=== PATIENT | male | born 1955 | race Caucasian/White ===

== ENCOUNTER 2019-09-25 18:50 | Inpatient (IN) | payer MEDICARE, OTHER ==
[2019-09-25 20:20] LABS: Basophils # (A) 0.1 k/uL (0-0.2); Basophils % (A) 1 %; Eosinophils # (A) 0.2 k/uL (0-0.7); Eosinophils % (A) 3 %; HCT 41.6 % (39.0-53.0); HGB 13.2 gm/dL (13.0-17.5); Hypochromasia Slight; Lymphocytes % (A) 13 %; MCH 25.9 pg (25.0-35.0); MCHC 31.8 g/dL (31.0-37.0); MCV 81.5 fL (80.0-100.0); Monocytes # (A) 0.5 k/uL (0-1.0); Monocytes % (A) 6 %; Neutrophils # (A) 6.1 k/uL (1.3-7.7); Neutrophils % (A) 76 %; Platelet Count 261 k/uL (150-450); RDW 14.6 % (11.5-15.5)
[2019-09-25 20:27] LABS: ALT 29 U/L (4-49); AST 100 U/L (17-59); African American GFR (CKD) >90 (>60 ml/min/1.73 sqM); Albumin 3.8 g/dL (3.5-5.0); Alkaline Phosphatase 69 U/L (38-126); Anion Gap 8 mmol/L; Blood Urea Nitrogen 14 mg/dL (9-20); Calcium 8.8 mg/dL (8.4-10.2); Carbon Dioxide 29 mmol/L (22-30); Chloride 101 mmol/L (98-107); Glucose 93 mg/dL (74-99); Magnesium 2.2 mg/dL (1.6-2.3); Non-African American GFR(CKD) >90 (>60 ml/min/1.73 sqM); Potassium 3.9 mmol/L (3.5-5.1); Sodium 138 mmol/L (137-145); Total Bilirubin 0.7 mg/dL (0.2-1.3); Total Protein 6.6 g/dL (6.3-8.2)
[2019-09-25 20:38] LABS: INR 0.9 (<1.2); Partial Thromboplastin Time 21.7 sec (22.0-30.0); Prothrombin Time 9.6 sec (9.0-12.0)
[2019-09-25 20:39] LABS: Creatine Kinase MB 13.3 ng/mL (0.0-2.4); Troponin I 0.016 ng/mL (0.000-0.034)
--- NOTE | 2019-09-25 20:46 | XR ---
EXAMINATION TYPE: XR chest 2V DATE OF EXAM: 09/25/2019 COMPARISON: NONE HISTORY: Weakness TECHNIQUE: 3 views FINDINGS: There is mild thoracic kyphosis. There is 25% anterior wedging of T7 and T8 vertebra. Heart and mediastinum are normal. Lungs are clear of infiltrate. There is no pleural effusion. There are n o hilar masses. IMPRESSION: No active cardiopulmonary disease. Thoracic compression fractures appear old.
[2019-09-25 21:33] LABS: T4, Free (Free Thyroxine) 0.84 ng/dL (0.78-2.19)
[2019-09-25 23:16] LABS: Appearance,Urine Cloudy (Clear); Bacteria,Urine Rare /hpf; Bilirubin,Urine Negative (Negative); Blood,Urine Negative (Negative); Color,Urine Yellow; Glucose,Urine (UA) Negative (Negative); Ketones,Urine 2+ (Negative); Leukocyte Esterase,Urine Large (Negative); Mucus,Urine Rare /hpf; Nitrite,Urine Negative (Negative); PH, Urine 7.5 (5.0-8.0); Protein,Urine Trace (Negative); RBC,Urine 3 /hpf (0-5); Specific Gravity,Urine 1.021 (1.001-1.035); WBC,Urine 87 /hpf (0-5)
[2019-09-25] MEDS ORDERED: NALOXONE 0.4 MG/ML 1 ML VIAL IV PRN (23:18)
--- NOTE | 2019-09-25 23:18 | ED ---
Weakness HPI - General Stated complaint: weakness - History of Present Illness Initial comments: See paper chariting for HPI Review of Systems ROS Statement: Those systems with pertinent positive or pertinent negative responses have been documented in the HPI. ROS Other: All systems not noted in ROS Statement are negative. Course Vital Signs 09/25/19 09/25/19 21:12 23:02 Pulse Rate 79 79 Respiratory 18 Rate Blood Pressure 156/85 146/86 O2 Sat by Pulse 99 98 Oximetry Medical Decision Making - Medical Decision Making 63-year-old male patient presented to the emergency department today for evaluation of leg weakness. Patient reports history of MS diagnosed 20 years ago, not currently on medications. Physical examination initially patient was unable to move his legs. Sensation was intact. He is otherwise neurologically intact. Labs reviewed and did reveal elevated CK at 1999. EKG was unremarkable. Chest x-ray was unremarkable. Patient will be admitted to the [facility] for further evaluation and possible neurology evaluation. We will start IV fluids - Lab Data Result diagrams: 09/25/19 19:36 09/25/19 19:36 Lab Results 09/25/19 09/25/19 09/25/19 Range/Units 19:36 19:36 19:36 WBC 8.0 (3.8-10.6) k/uL RBC 5.10 (4.30-5.90) m/uL Hgb 13.2 (13.0-17.5) gm/dL Hct 41.6 (39.0-53.0) % MCV 81.5 (80.0-100.0) fL MCH 25.9 (25.0-35.0) pg MCHC 31.8 (31.0-37.0) g/dL RDW 14.6 (11.5-15.5) % Plt Count 261 (150-450) k/uL Neutrophils % 76 % Lymphocytes % 13 % Monocytes % 6 % Eosinophils % 3 % Basophils % 1 % Neutrophils # 6.1 (1.3-7.7) k/uL Lymphocytes # 1.0 (1.0-4.8) k/uL Monocytes # 0.5 (0-1.0) k/uL Eosinophils # 0.2 (0-0.7) k/uL Basophils # 0.1 (0-0.2) k/uL Hypochromasia Slight PT (9.0-12.0) sec INR (<1.2) APTT (22.0-30.0) sec Sodium 138 (137-145) mmol/L Potassium 3.9 (3.5-5.1) mmol/L Chloride 101 (98-107) mmol/L Carbon Dioxide 29 (22-30) mmol/L Anion Gap 8 mmol/L BUN 14 (9-20) mg/dL Creatinine 0.73 (0.66-1.25) mg/dL Est GFR (CKD-EPI)AfAm >90 (>60 ml/min/1.73 sqM) Est GFR (CKD-EPI)NonAf >90 (>60 ml/min/1.73 sqM) Glucose 93 (74-99) mg/dL Plasma Lactic Acid Gene (0.7-2.0) mmol/L Calcium 8.8 (8.4-10.2) mg/dL Magnesium 2.2 (1.6-2.3) mg/dL Total Bilirubin 0.7 (0.2-1.3) mg/dL AST 100 H (17-59) U/L ALT 29 (4-49) U/L Alkaline Phosphatase 69 (38-126) U/L Total Creatine Kinase 2067 H* (55-170) U/L CK-MB (CK-2) 13.3 H (0.0-2.4) ng/mL CK-MB (CK-2) Rel Index Troponin I 0.016 (0.000-0.034) ng/mL Total Protein 6.6 (6.3-8.2) g/dL Albumin 3.8 (3.5-5.0) g/dL TSH 12.000 H (0.465-4.680) mIU/L Free T4 0.84 (0.78-2.19) ng/dL 09/25/19 09/25/19 Range/Units 19:36 19:36 WBC (3.8-10.6) k/uL RBC (4.30-5.90) m/uL Hgb (13.0-17.5) gm/dL Hct (39.0-53.0) % MCV (80.0-100.0) fL MCH (25.0-35.0) pg MCHC (31.0-37.0) g/dL RDW (11.5-15.5) % Plt Count (150-450) k/uL Neutrophils % % Lymphocytes % % Monocytes % % Eosinophils % % Basophils % % Neutrophils # (1.3-7.7) k/uL Lymphocytes # (1.0-4.8) k/uL Monocytes # (0-1.0) k/uL Eosinophils # (0-0.7) k/uL Basophils # (0-0.2) k/uL Hypochromasia PT 9.6 (9.0-12.0) sec INR 0.9 (<1.2) APTT 21.7 L (22.0-30.0) sec Sodium (137-145) mmol/L Potassium (3.5-5.1) mmol/L Chloride (98-107) mmol/L Carbon Dioxide (22-30) mmol/L Anion Gap mmol/L BUN (9-20) mg/dL Creatinine (0.66-1.25) mg/dL Est GFR (CKD-EPI)AfAm (>60 ml/min/1.73 sqM) Est GFR (CKD-EPI)NonAf (>60 ml/min/1.73 sqM) Glucose (74-99) mg/dL Plasma Lactic Acid Gene 1.4 (0.7-2.0) mmol/L Calcium (8.4-10.2) mg/dL Magnesium (1.6-2.3) mg/dL Total Bilirubin (0.2-1.3) mg/dL AST (17-59) U/L ALT (4-49) U/L Alkaline Phosphatase (38-126) U/L Total Creatine Kinase (55-170) U/L CK-MB (CK-2) (0.0-2.4) ng/mL CK-MB (CK-2) Rel Index Troponin I (0.000-0.034) ng/mL Total Protein (6.3-8.2) g/dL Albumin (3.5-5.0) g/dL TSH (0.465-4.680) mIU/L Free T4 (0.78-2.19) ng/dL - Radiology Data Radiology results: report reviewed, image reviewed Two-view x-ray of the chest is obtained. Report was reviewed in its entirety. Impression by Dr. Elliott shows no active cardiopulmonary disease. Thoracic compression fractures of-year-old. Disposition Clinical Impression: Leg weakness Disposition: ADMITTED IP TO THIS HOSP Condition: Serious Referrals: None,Stated [Primary Care Provider] - 1-2 days Decision to Admit Reason: Admit from EC Decision Date: 09/25/19 Decision Time: 23:18
[2019-09-26] MEDS: SODIUM CHLORIDE 0.9% 1,000 ML IV SCH ×4 (00:30→21:56)
[2019-09-26] MEDS ORDERED: ACETAMINOPHEN TAB 325 MG TAB PO PRN (02:46)
--- NOTE | 2019-09-26 03:14 | P.HPIM ---
History of Present Illness H&P Date: 09/26/19 Chief Complaint: spasm and weakness of lower extremities 63 year old male with hisroy of MS not on medications patient comes in due to couple day history of progressive weakness in his lower extremities. he reports spasm that has been worsening over the past 2 weeks. he decided to seek medical attention today. he reports similar attacks on regular basis , that improves on its own , happens 1-2 times a month. however such weakness he does not experience but probably onc e a year he otherwise denies any drug of abuse, denies any pain , denies any sensosry changes, denies any trauma . [place]. he does not take any medications on regular basis he otherwise denies any trouble urinating or problems with bowel movement . d enies any fever, chills, chest pain , trouble breathing coughing nausea vomting or abd pain . blood work in the ED , showed elevated CK, elevated TSH, however free T4 within normal limits. he denies any sick contacts. patient ambulates using wheelchair , and walker. last hospitalization was 10 years ago . Review of Systems Pertinent positives as noted in HPI. All other systems were reviewed and are negative Past Medical History Additional Past Medical History / Comment(s): MS - Past Family History family Family Medical History: No Reported History Medications and Allergies Allergies Allergy/AdvReac Type Severity Reaction Status Date / Time No Known Allergies Allergy Verified 09/25/19 23:55 Physical Exam Vitals: Vital Signs Pulse Resp BP Pulse Ox 09/25/19 23:02 79 18 146/86 98 09/25/19 21:12 79 156/85 99 Intake and Output 09/25/19 09/25/19 09/26/19 14:59 22:59 06:59 Other: Weight 61.689 kg Constitutional: No acute distress, conversant, pleasant Eyes: Anicteric sclerae, moist conjunctiva, Pupils equal round reactive to light ENMT: NC/AT Oropharynx clear, no erythema, or exudates Neck: Supple, FROM, no masses, or JVD No carotid bruits No thyromegaly Lungs: Clear to auscultation Clear to percussion Normal respiratory effort, no accessory muscle use Cardiovascular: Heart regular in rate and rhythm, No murmurs, gallops, or rubs No peripheral edema Abdominal: Soft Nontender, no guarding, rebound or rigidity Abdomen moving with respiration Normoactive bowel sounds No hepatomegaly, No splenomegaly No palpable mass No abdominal wall hernia noted Skin: Normal temperature, tone, texture, turgor No induration No subcutaneous nodules No rash, lesions No ulcers Extremities: No digital cyanosis No clubbing Pedal pulses intact and symmetrical Radial pulses intact and symmetrical No calf tenderness Psychiatric: Alert and oriented to person, place and time Appropriate affect fair judgement Neuro Muscles Strength 5/5 in bilateral upper extremities, spasm of the lower extremity , stiffness over distal muscle groups in lower extremities Sensation to light touch grossly present throughout Cranial nerves II-XII grossly intact No focal sensory deficits Lymphatics: no palpable cervical or supraclavicular , or inguinal lymph nodes Results CBC & Chem 7: 09/25/19 19:36 09/25/19 19:36 Labs: Abnormal Lab Results - Last 24 Hours (Table) 09/25/19 09/25/19 09/25/19 Range/Units 19:36 19:36 19:36 APTT 21.7 L (22.0-30.0) sec AST 100 H (17-59) U/L Total Creatine Kinase 2067 H* (55-170) U/L CK-MB (CK-2) 13.3 H (0.0-2.4) ng/mL TSH 12.000 H (0.465-4.680) mIU/L Urine Protein (Negative) Urine Ketones (Negative) Ur Leukocyte Esterase (Negative) Urine WBC (0-5) /hpf Urine Bacteria (None) /hpf Urine Mucus (None) /hpf 09/25/19 Range/Units 23:00 APTT (22.0-30.0) sec AST (17-59) U/L Total Creatine Kinase (55-170) U/L CK-MB (CK-2) (0.0-2.4) ng/mL TSH (0.465-4.680) mIU/L Urine Protein Trace H (Negative) Urine Ketones 2+ H (Negative) Ur Leukocyte Esterase Large H (Negative) Urine WBC 87 H (0-5) /hpf Urine Bacteria Rare H (None) /hpf Urine Mucus Rare H (None) /hpf Assessment and Plan Assessment: 63 year old male with MS, not currently on medications. uses wheelchair and walker to ambulate. comes in due to worsening spasm and weakness of lower extremities . admitted for Neuro eval and treatment anticipated length of stay >2 midnights acute MS exacerbation methylprednisolone 1 gm daily for 3-5 days baclofen TID PRN for spasm neuro eval neuro consult pain control acute rhabdomyolysis aggressive IVF hydration with normal saline monitor CK monitor renal function elevated TSH , acute phase reaction free T4 within normal limits consider outpatient follow up within 4-6 weeks CODE STATUS: full code DVT prophylaxis: heparin sc tid Discussed with: Patient, ER, RN Anticipated length of stay >than [address]: home A total of 75 minutes was spent on the care of this complex patient more than 50% of the time was spent in counseling and care coordination. acute
[2019-09-26] MEDS: HEPARIN SODIUM,PORCINE 5,000 UNIT/ML 1 ML VIAL SQ SCH ×3 (08:50→23:45)
[2019-09-26] MEDS: PANTOPRAZOLE 40 MG TABLET PO SCH ×2 (08:50→17:12)
[2019-09-26] MEDS ORDERED: BACLOFEN 10 MG TAB PO PRN (09:00)
[2019-09-26] MEDS: methylPREDNISolone SOD SUCC 1,000 MG in SODIUM CHLORIDE 0.9% 250 ML IVPB SCH (09:39)
--- NOTE | 2019-09-26 09:41 | P.PN ---
Progress Note - Text Progress Note Date: 09/26/19 Patient was seen and examined. He has profound weakness in both of his extremities right more than left. I will order MRI of the thoracic and lumbar spine to look for a ms lesion versus any other spinal pathology.
[2019-09-26 10:00] LABS: African American GFR (CKD) >90 (>60 ml/min/1.73 sqM); Anion Gap 5 mmol/L; Blood Urea Nitrogen 14 mg/dL (9-20); Calcium 8.6 mg/dL (8.4-10.2); Carbon Dioxide 28 mmol/L (22-30); Chloride 105 mmol/L (98-107); Creatine Kinase 948 U/L (55-170); Glucose 140 mg/dL (74-99); Non-African American GFR(CKD) >90 (>60 ml/min/1.73 sqM); Potassium 3.8 mmol/L (3.5-5.1); Sodium 138 mmol/L (137-145)
[2019-09-26] MEDS ORDERED: LORazepam 2 MG/ML INJ IV STA (13:32)
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
--- NOTE | 2019-09-26 15:25 | MR ---
EXAMINATION TYPE: MR brain/cspine wo/w DATE OF EXAM: 09/26/2019 COMPARISON: None HISTORY: Progressive weakness in [place] Extremities, spasms. Questioning MS TECHNIQUE: Multiplanar, multisequence images of the brain and brainstem, cervical spine is performed without and with IV contrast, utilizing 6.5 mL intravenous Gadavist . FINDINGS: There is motion on the exam. Diffusion weighted images demonstrate no evidence of a recent infarct or other diffusion abnormality. There is no extra-axial fluid collection. There is subcorti italo, periventricular hyperintensity and inversion recovery T2-weighted sequences within the deep whit e matter is noted. The ventricular system and cisternal spaces are normal in size and appearance. Th e brain volume is age appropriate, there is cortical atrophy, perhaps disproportionate greater atroph y is noted within the cerebellum. Midline structures demonstrate normal morphology. The craniocervical junction appears within normal limits. Post contrast images demonstrate no abnormal enhancement. The dural venous sinuses appear pa tent. The visualized sinuses are clear and the globes are intact. IMPRESSION: Nonspecific white matter demyelination. Probable age-related atrophy, disproportionate ce rebellar atrophy could be due to entities such as chronic Dilantin use or alcohol abuse. Cervical spine: Cervical vertebral bodies show preserved height and alignment. Disc spaces are relati vely maintained, small disc bulge present posteriorly at C6-7. Cervical cord signal is maintained. No significant spinal stenosis. No abnormal enhancement following contrast administration. Axial images show extensive motion. Impression: Mild degenerative disc disease. No evident cord signal change.
[2019-09-26 16:32] LABS: Glucose,Whole Blood 154 mg/dL (75-99)
[2019-09-26 21:41] LABS: Glucose,Whole Blood 132 mg/dL (75-99)
[2019-09-27] MEDS: SODIUM CHLORIDE 0.9% 1,000 ML IV SCH ×3 (05:00→17:04)
[2019-09-27 06:44] LABS: Glucose,Whole Blood 128 mg/dL (75-99)
[2019-09-27 08:27] VITALS: RESP 18
[2019-09-27] MEDS: PANTOPRAZOLE 40 MG TABLET PO SCH ×2 (08:50→17:04)
[2019-09-27] MEDS: HEPARIN SODIUM,PORCINE 5,000 UNIT/ML 1 ML VIAL SQ SCH ×2 (08:50→17:04)
[2019-09-27] MEDS: methylPREDNISolone SOD SUCC 1,000 MG in SODIUM CHLORIDE 0.9% 250 ML IVPB SCH (08:51)
[2019-09-27 11:28] LABS: Glucose,Whole Blood 116 mg/dL (75-99)
--- NOTE | 2019-09-27 12:39 | P.PN ---
Subjective Progress Note Date: 09/27/19 Principal diagnosis: MS exacerbation Patient is doing much better today. The weakness in his legs has improved. Currently waiting on MRI results. No other new symptoms. Objective - Vital Signs Vital signs: Vital Signs Temp 98.2 F 09/27/19 11:00 Pulse 89 09/27/19 11:00 Resp 18 09/27/19 11:00 BP 149/76 09/27/19 11:00 Pulse Ox 95 09/27/19 11:00 Intake & Output 09/26/19 09/27/19 09/27/19 18:59 06:59 18:59 Intake Total 1500 1190 Output Total 100 Balance 1500 1190 -100 Weight 61.689 kg Intake: Intake, IV Titration 1500 1000 Amount Sodium Chloride 0.9% 1, 1200 1000 000 ml @ 150 mls/hr IV . Q6H40M [facility] Rx#:[id number] cefTRIAXone 1 gm In 50 Sodium Chloride 0.9% 50 ml @ 100 mls/hr IVPB Q24HR [facility] Rx#:[id number] methylPREDNISolone SOD 250 SUCC 1,000 mg In Sodium Chloride 0.9% 250 ml @ 250 mls/hr IVPB DAILY [facility] Rx#:[id number] Oral 190 Output: Urine 100 Other: Voiding Method Urinal Diaper # Voids 1 - Exam Constitutional: No acute distress, conversant, pleasant Eyes:Anicteric sclerae, moist conjunctiva, no lid-lag, PERRLA, ENMT: Oropharynx clear, no erythema, exudates Neck: Supple, FROM, no masses, or JVD, No carotid bruits, No thyromegaly Lungs: Clear to auscultation, Clear to percussion, Normal respiratory effort, no accessory muscle use Cardiovascular: Heart regular in rate and rhythm, No murmurs, gallops, or rubs, No peripheral edema Abdominal: Soft, Nontender, no guarding, rebound or rigidity, Normoactive bowel sounds, No hepatomegaly, No splenomegaly, No palpable mass Skin: Normal temperature, tone, texture, turgor, no induration, No subcutaneous nodules, No rash, lesions, No ulcers Extremities: No digital cyanosis, No clubbing, Pedal pulses intact and symmetrical, Radial pulses intact and symmetrical, No calf tenderness Psychiatric: Alert and oriented to person, place and time, appropriate affect, intact judgement Neuro: Muscles Strength 3/5 in the legs. Bilateral upper extremities 5/5, Sensation to light touch grossly present throughout, Cranial nerves II-XII grossly intact, no focal sensory deficits - Labs CBC & Chem 7: 09/25/19 19:36 09/26/19 09:04 Labs: Abnormal Lab Results - Last 24 Hours (Table) 09/26/19 09/26/19 09/26/19 Range/Units 09:09 09:09 16:30 POC Glucose (mg/dL) 154 H (75-99) mg/dL CK-MB (CK-2) 6.4 H (0.0-2.4) ng/mL HDL Cholesterol 32 L (40-60) mg/dL 09/26/19 09/27/19 09/27/19 Range/Units 21:29 06:39 11:26 POC Glucose (mg/dL) 132 H 128 H 116 H (75-99) mg/dL CK-MB (CK-2) (0.0-2.4) ng/mL HDL Cholesterol (40-60) mg/dL Microbiology - Last 24 Hours (Table) 09/26/19 11:00 Urine Culture - Final Urine,Clean Catch Assessment and Plan Plan: acute MS exacerbation Continue methylprednisolone 1 gm daily for 3-5 days baclofen TID PRN for spasm neuro input appreciated MRI of the brain and cervical spine noted Awaiting MRI thoracic and lumbar spine acute rhabdomyolysis Improved, Continue IVF hydration with normal saline monitor renal function UTI Urine cx pending Ceftriaxone 1gm IV daily Anticipated discharge: 2-[address]: rehab
[2019-09-27] MEDS ORDERED: LORazepam 2 MG/ML INJ IV STA (14:22)
[2019-09-27 17:05] LABS: Glucose,Whole Blood 141 mg/dL (75-99)
--- NOTE | 2019-09-27 20:01 | MR ---
EXAMINATION TYPE: MR rogerioine/lspine wo/w con DATE OF EXAM: 09/27/2019 COMPARISON: HISTORY: Bilateral leg weakness, progressive with question for multiple sclerosis. TECHNIQUE: Multiplanar, multisequence images of the lumbar spine is performed without and with IV contrast, util izing 6.5 mL intravenous Gadavist FINDINGS: There is some patient motion artifact limiting evaluation. There is an old compression deformity of L1 with estimated vertebral body height loss of approximatel y 20%. Superior endplate Schmorl's node is also seen. No bone marrow edema identified. Epidural lipom atosis is seen of the thoracic levels with an exaggerated thoracic kyphosis. Multilevel degenerative disc disease is evident in the thoracic spine however no focal disc herniation or significant spinal canal stenosis is seen. No discrete neural foraminal narrowing at the thoracic levels. Trace pleural effusions are incidentally seen. Old compression deformity of L1 as described above. Remainder of the lumbar spine vertebral body heig hts are maintained. No malalignment seen. Rudimentary disc at S1-S2. Bone marrow signal is within nor mal limits. Conus medullaris is unremarkable terminating at L1-L2. Multilevel disc desiccation seen. L1-L2: Minimal facet arthropathy without spinal canal stenosis or neural foraminal narrowing. L2-L3: Disc desiccation and a small broad-based disc bulge without spinal canal stenosis. Minimal lef t neural foraminal narrowing. No significant right neural foraminal narrowing. L3-L4: There is a broad-based disc bulge and facet arthropathy resulting in minimal left neural grant inal narrowing. No significant spinal canal stenosis or right neural foraminal narrowing. L4-L5: Facet arthropathy, ligamentum flavum buckling and a broad-based disc bulge are seen contributi ng to mild bilateral neural foraminal narrowing. Very mild spinal canal stenosis. L5-S1: There is a small central disc herniation superimposed on a broad-based disc bulge. Facet arthr opathy and ligamentum flavum buckling are seen creating mild bilateral neural foraminal narrowing wit hout spinal canal stenosis. There is subtle and mild distal nerve root enhancement of the cauda equina is seen diffusely. IMPRESSION: 1. Very mild subtle distal nerve root enhancement of the cauda equina diffusely. Differential diagnos es include Guillian Teague syndrome, chronic inflammatory polyneuropathy, arachnoiditis, spinal mening itis, and leptomeningeal carcinomatosis. Repeat examination could be considered with contrast to conf irm this finding as there is extensive patient motion. 2. Old compression deformity of L1 without bone marrow edema. 3. Exaggerated thoracic kyphosis with epidural lipomatosis.. 4. Trace pleural effusions incidentally seen. 5. Lumbar spine evaluation is particularly limited given patient motion. 6. Small central disc herniation at L5-S1 without spinal canal stenosis. 7. Mild spinal canal stenosis at L4-L5 from a broad-based disc bulge, facet arthropathy and ligamentu m flavum buckling. 8. Mild to moderate degenerative disc disease of the lumbar spine are detailed age level. A [place] critical message alert has been initiated for Cr Delacruz MD via the [employer] Critical Results System on 09/27/2019 7:58 PM. This message alert has been sent to Cr Delacruz MD via the preferences provided by the clinician for the receipt of Radiology Critical Findings. [facility] [place] [id number].
--- NOTE | 2019-09-27 20:40 | P.PN ---
Progress Note - Text Progress Note Date: 09/27/19 I reviewed MRI lumbar and thoracic spine with dr. Livingston who is recommending transfer to a different facility that offers neurology and neurosurgery service. as we have no neurology follow up over the weekend,. I notified housekeeping manager to initiate the transfer. no recommendations otherwise for any immediate interventions at this time
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
--- NOTE | 2019-09-27 20:57 | P.DS ---
Providers Date of admission: 09/27/19 13:09 Expected date of discharge: 09/27/19 Attending physician: Cr Delacruz MD Consults: 09/26/19 02:57 Consult Physician Routine Consulting Provider: Anshu Beltre Consult Reason/Comments: MS exacerbation Do you want consulting provider notified?: Yes, Notify in am Primary care physician: Stated None Hospital Course: final diagnosis at time of transfer 1. waxing and waning spasticity of the lower extremities , chronic in nature with recent flare up, unknown exact underlying cause hospital course. 63-year-old man who resents with a presumed diagnosis of multiple sclerosis. He complains of progressive weakness in the lower extremities and spasms which got worse over the past 1-2 weeks, which he claims that it happens at least once every month which improves on its own . patient seems to have very poor insight regarding his condition. He was given a diagnosis of Multiple sclerosis at age of 16 years when he had ve ry bad spasticity of his lower extremities. Patient also recalls an accident earlier during his childhood which could have precipitated this problem. he is very poor historian. but does recall some kind of spinal cord injury when he was around 6 years old. he has been lost to follow up and currently not on any medications. He also admits to difficulty with controling his urine and bowel movements. Otherwise, He denies any bulbar symptoms , difficulty swallowing, or any upper extremities weakness or spasticity. denies fever, Headache , vision changes, nausea or vomiting. initial evaluation in the ED, showed slightly elevated blood pressure, and blood work reflected elevated CK and elevated TSH at 12 wtih normal free T4. patient was admitted to the hospital for neurology evaluation , he was initiated on Solu-Medrol 1000 mg IV as pulse dose therapy for presumed MS exacerbation. and baclofen PRN for spasticity patient was also started on Rocephine for presumed UTI, awaiting cultures results , no fever, no leukocytosis patient had very slight improvement in his weakness. MRI of the thoracic and lumbar spine attached, done today was concerning for very mild subtle distal nerve root enchancement of the cauda equina diffusely . differential diagnosis include Guilliam Bradgate syndrome, chronic inflammatory polyneuropathy, arachnoiditis, spinal meningitis, and leptomeningeal carcinomatosis suggesting repeating examination with contrast to confirm these findings due to extensive patient motion I discussed results with neurology , who recommended transfer to a facility that provides Neurology coverage and neurosurgery evaluation as we do not have neurology coverage over the weekend no recommendations for any other immediate interventions at this time. patient is clinically stable otherwise with stable vital sings Patient Condition at Discharge: Stable Plan - Discharge Summary Discharge Rx Participant: No New Discharge Prescriptions: No Action Naproxen Sodium [Aleve] 440 mg PO Q8H PRN PRN Reason: Pain Discharge Medication List Naproxen Sodium [Aleve] 440 mg PO Q8H PRN 09/27/19 [History] Follow up Appointment(s)/Referral(s): None,Stated [Primary Care Provider] - 1-2 days [facility] [NON-STAFF] - 1 Week
[2019-09-27 22:19] VITALS: BP 174/88; PULSE 97; TEMP 98.3
[2019-09-28 22:00] LABS: Folate, Serum 7.6 ng/mL
== END 2019-09-28 05:40 | disposition short-term general hospital (02) | DRG 59 ==
LOC: EC 18:50 → 6NMEDSUR 23:31 → 1SOBS 09-26 09:07 → OBSVTOIN 09-27 13:09
PROVIDERS: ADMIT Internal Medicine; ATTEND Internal Medicine
DX: G35 Multiple sclerosis (principal); M62.82 Rhabdomyolysis; R32 Unspecified urinary incontinence; R15.9 Full incontinence of feces; R62.7 Adult failure to thrive; Z68.22 Body mass index [BMI] 22.0-22.9, adult; R26.9 Unspecified abnormalities of gait and mobility; Z11.59 Encounter for screening for other viral diseases; G31.89 Other specified degenerative diseases of nervous system; F17.210 Nicotine dependence, cigarettes, uncomplicated; Z91.81 History of falling; S14.9XXS Injury of unspecified nerves of neck, sequela; W19.XXXS Unspecified fall, sequela
CPT/HCPCS: 36415; 70553; 71046; 72156; 72157; 72158; 80048; 80053; 80061; 81001; 82550; 82553; 82607; 82746; 83516; 83605; 83735; 83880; 84439; 84443; 84480; 84484; 85025; 85610; 85730; 87086; 96365; 96372; 99285

== ENCOUNTER 2023-05-24 15:05 | Inpatient (IN) | payer MEDICARE, OTHER ==
[2023-05-24] MEDS ORDERED: SODIUM CHLORIDE 0.9% 1,000 ML IV STA ×3 (15:32→16:28)
[2023-05-24] MEDS ORDERED: KETOROLAC 15 MG/ML 1 ML VIAL IVP STA (15:32)
[2023-05-24] MEDS ORDERED: PANTOPRAZOLE 40 MG/10 ML VIAL IVP STA (15:32)
[2023-05-24] MEDS ORDERED: ONDANSETRON 4 MG/2 ML VIAL IVP STA (15:32)
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
[2023-05-24 16:16] LABS: HCT 51.6 % (39.0-53.0); HGB 16.7 gm/dL (13.0-17.5); MCH 29.3 pg (25.0-35.0); MCHC 32.5 g/dL (31.0-37.0); MCV 90.4 fL (80.0-100.0); Mean Platelet Volume 8.9; Platelet Count 219 k/uL (150-450); RBC 5.71 m/uL (4.30-5.90); RDW 13.6 % (11.5-15.5); WBC 31.4 k/uL (3.8-10.6)
[2023-05-24 16:28] LABS: ALT 38 U/L (4-49); AST 26 U/L (17-59); Albumin 3.7 g/dL (3.5-5.0); Alkaline Phosphatase 229 U/L (38-126); Amylase 61 U/L (30-110); Anion Gap 24 mmol/L; Calcium 8.6 mg/dL (8.4-10.2); Carbon Dioxide 14 mmol/L (22-30); Chloride 98 mmol/L (98-107); Creatine Kinase 54 U/L (55-170); Glucose 158 mg/dL (74-99); Lipase 27 U/L (23-300); Potassium 5.2 mmol/L (3.5-5.1); Sodium 136 mmol/L (137-145); Total Bilirubin 1.6 mg/dL (0.2-1.3); Total Protein 7.2 g/dL (6.3-8.2)
[2023-05-24] MEDS ORDERED: VANCOMYCIN IV PER PHARMACY 1 EACH MISC MISCELLANE PRN (16:28)
--- NOTE | 2023-05-24 16:28 | XR ---
EXAMINATION TYPE: XR chest 2V DATE OF EXAM: 05/24/2023 4:21 PM CLINICAL INDICATION:Male, 67 years old with history of abdominal pain; COMPARISON: Chest radiographs from 09/25/2019 TECHNIQUE: XR chest 2V Frontal and lateral views of the chest. FINDINGS: Lungs/Pleura: There is no evidence of pleural effusion, focal consolidation, or pneumothorax. Pulmonary vascularity: Unremarkable. Heart/mediastinum: Cardiomediastinal silhouette is unremarkable. Musculoskeletal: No acute osseous pathology. IMPRESSION: No acute cardiopulmonary disease/process.
[2023-05-24] MEDS ORDERED: PIPERACILLIN-TAZOBACTAM 3.375 GM in SODIUM CHLORIDE 0.9% 100 ML IVPB SCH (16:30)
[2023-05-24] MEDS ORDERED: VANCOMYCIN 1,000 MG in SODIUM CHLORIDE 0.9% 250 ML IVPB STA (16:32)
[2023-05-24 16:34] LABS: African American GFR (CKD) 7 (>60 ml/min/1.73 sqM); Non-African American GFR(CKD) 6 (>60 ml/min/1.73 sqM)
[2023-05-24 16:36] LABS: Appearance,Urine Turbid (Clear); Bilirubin,Urine Negative (Negative); Blood,Urine Moderate (Negative); Budding Yeast,Urine Few /hpf; Color,Urine Red; Glucose,Urine (UA) Negative (Negative); Ketones,Urine Negative (Negative); Leukocyte Esterase,Urine Large (Negative); Mucus,Urine Few /hpf; Nitrite,Urine Negative (Negative); PH, Urine 6.5 (5.0-8.0); Protein,Urine 3+ (Negative); RBC,Urine 34 /hpf (0-5); Urobilinogen,Urine <2.0 mg/dL (<2.0); WBC,Urine >182 /hpf (0-5)
[2023-05-24 16:37] LABS: Blood Urea Nitrogen 115 mg/dL (9-20)
[2023-05-24 16:52] LABS: Specific Gravity,Urine 1.023 (1.001-1.035)
[2023-05-24] MEDS ORDERED: PIPERACILLIN-TAZOBACTAM 3.375 GM in SODIUM CHLORIDE 0.9% 100 ML IVPB STA (16:56)
[2023-05-24 17:16] LABS: INR 1.2 (<1.2); Partial Thromboplastin Time 24.8 sec (22.0-30.0); Prothrombin Time 12.9 sec (10.0-12.5)
[2023-05-24 17:24] LABS: Band Neutrophils % 1 %; Lymphocytes # (M) 0.31 k/uL (1.0-4.8); Metamyelocytes # (M) 0.63 k/uL (0); Metamyelocytes % 2 %; Monocytes # (M) 0.63 k/uL (0-1.0); Neutrophils % (M) 96 %; Nucleated Red Blood Cells 0 /100 WBC (0-0); Total Cells Counted 200
--- NOTE | 2023-05-24 17:46 | CT ---
EXAMINATION TYPE: CT abdomen pelvis wo con CT DLP: 345.4 mGycm, Automated exposure control for dose reduction was used. DATE OF EXAM: 05/24/2023 5:26 PM COMPARISON: None. CLINICAL INDICATION:Male, 67 years old with history of abd pain; hematuria TECHNIQUE: Axial CT abdomen pelvis wo con;Sagittal and coronal reformats were created on a separate workstation. Contrast used: mL of , (none if empty) Oral contrast used: without Oral Contrast (none if empty) FINDINGS: LOWER CHEST: Unremarkable ABDOMEN LIVER: Unremarkable GALLBLADDER AND BILE DUCTS: Unremarkable. PANCREAS: Unremarkable. SPLEEN: Unremarkable. ADRENAL GLANDS: Unremarkable. KIDNEYS AND URETERS: Moderate left hydronephrosis bowel obstruction can't is visualized. There is hyp odensity throughout the bladder lumen. Partially relating to decompressed urinary bladder wall versus blood products PELVIS BLADDER: Nondistended with Zarate catheter in place. Bladder wall thickening and redundancy suggested. Evaluation significantly limited due to decompression with Zarate catheter. REPRODUCTIVE: Unremarkable. ABDOMEN & PELVIS STOMACH AND BOWEL: Is a moderate hiatal hernia. No evidence of bowel obstruction. PERITONEUM/RETROPERITONEUM: No evidence of pneumoperitoneum. There is free fluid throughout the abdom en. VASCULATURE: Mild atherosclerotic calcifications are present throughout the abdominal aorta and its b ranches. No evidence of aortic aneurysm. MUSCULOSKELETAL: No acute osseous abnormalities. Mild disc degeneration changes are present throughou t the thoracolumbar spine. LYMPH NODES: No gross evidence for lymphadenopathy. SOFT TISSUE/ABDOMINAL WALL: Bilateral fat-containing. Bilateral fat-containing inguinal hernias. IMPRESSION: 1. Bladder is decompressed with Zarate catheter in place. There is diffuse wall thickening suggested. Further evaluation with cystoscopy if not recently performed should be considered throughout underly ing masses. Correlate for traumatic Zarate insertion. 2. Moderate left hydronephrosis without obstructing calculus visualized. Correlate for distal ureter orifice obstruction 3. Free fluid throughout the abdomen possibly secondary to ruptured left calyx. Consider CT imaging with IV contrast with 15 minute delayed imaging 4. No additional acute abdominal process visualized. 5. Moderate hiatal hernia.
[2023-05-24] MEDS ORDERED: NALOXONE 0.4 MG/ML 1 ML VIAL IV PRN (18:16)
[2023-05-24] MEDS: SODIUM CHLORIDE 0.45% 1,000 ML with SODIUM BICARB (1 MEQ/ML) 150 ML IV SCH ×2 (18:32)
[2023-05-24] MEDS: HEPARIN SODIUM,PORCINE 5,000 UNIT/ML 1 ML VIAL SQ SCH (23:12)
[2023-05-25 03:40] LABS: Basophils # (A) 0.1 k/uL (0-0.2); Basophils % (A) 0 %; Eosinophils % (A) 0 %; HCT 40.8 % (39.0-53.0); Lymphocytes # (A) 0.4 k/uL (1.0-4.8); Lymphocytes % (A) 1 %; MCH 29.4 pg (25.0-35.0); MCHC 33.3 g/dL (31.0-37.0); MCV 88.4 fL (80.0-100.0); Mean Platelet Volume 9.1; Monocytes # (A) 0.4 k/uL (0-1.0); Monocytes % (A) 2 %; Neutrophils # (A) 24.7 k/uL (1.3-7.7); Neutrophils % (A) 96 %; Platelet Count 182 k/uL (150-450); RBC 4.61 m/uL (4.30-5.90); RDW 13.5 % (11.5-15.5); WBC 25.7 k/uL (3.8-10.6)
[2023-05-25 04:04] LABS: HGB 13.6 gm/dL (13.0-17.5)
[2023-05-25 04:25] LABS: African American GFR (CKD) 21 (>60 ml/min/1.73 sqM); Anion Gap 15 mmol/L; Blood Urea Nitrogen 81 mg/dL (9-20); Calcium 7.8 mg/dL (8.4-10.2); Carbon Dioxide 16 mmol/L (22-30); Chloride 108 mmol/L (98-107); Glucose 103 mg/dL (74-99); Non-African American GFR(CKD) 18 (>60 ml/min/1.73 sqM); Potassium 3.9 mmol/L (3.5-5.1); Sodium 139 mmol/L (137-145)
[2023-05-25] MEDS: HEPARIN SODIUM,PORCINE 5,000 UNIT/ML 1 ML VIAL SQ SCH ×2 (08:59→18:28)
[2023-05-25] MEDS: PIPERACILLIN-TAZOBACTAM 3.375 GM in SODIUM CHLORIDE 0.9% 100 ML IVPB SCH ×2 (09:00→20:27)
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
--- NOTE | 2023-05-25 11:18 | CT ---
EXAMINATION TYPE: CT Cystogram DATE OF EXAM: 05/25/2023 COMPARISON: NONE HISTORY: possible ruptured bladder CT DLP: 570.7 mGycm Automated exposure control for dose reduction was used. Contrast: None Technique: Axial images 5 mm thick sections. Contrast was administered through the Zarate catheter and repeat imaging was performed. FINDINGS: Free fluid is within the pelvis on the precontrast images. Urinary bladder contains a Zarate catheter and air. Bowel loops appear unremarkable. Vascular calcifications within aorta and iliac vessels. No free air is identified. Following retrograde filling of the urinary bladder, extravasation of contrast through the urinary bl adder wall is evident with free contrast within the peritoneum along the right pelvis and in the righ t paracolic gutter. There are multiple areas of contrast within the left urinary bladder wall. There appears be extravasation from urinary bladder along the anterior superior portion. Example image seri es 301 image 18. Possible additional extravasation is along the right posterior lateral urinary bladd er wall, series 301 image 27. Post void emptying imaging is also performed. IMPRESSION: 1. EXTRAVASATION OF CONTRAST FROM THE URINARY BLADDER MOST LIKELY AT THE ANTERIOR SUPERIOR PORTION. A SECOND POSSIBLE SITE WOULD INCLUDE THE RIGHT POSTERIOR LATERAL URINARY BLADDER. A Red level critical message alert has been initiated for Rc Etienne MD via the [facility] Critical Results System on 05/25/2023 11:13 AM. This message alert has been sent to Rc Etienne MD via the preferences provided by the clinician for the receipt of Radiology Critical Findings. [email or web address] e ID [id number].
[2023-05-25 11:19] VITALS: BMI 20.6
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
[2023-05-25] MEDS ORDERED: IV FLUID CONTINUATION 1,000 ML IV ONE ×3 (13:34→17:55)
[2023-05-25] MEDS ORDERED: IPRATROPIUM-ALBUTEROL 3 ML NEB ONE (13:54)
[2023-05-25] MEDS ORDERED: DEXAMETHASONE SOD PHOSPHATE 4 MG/ML 1 ML VIAL IVP ONE (14:00)
[2023-05-25] MEDS ORDERED: VANCOMYCIN 1,000 MG in SODIUM CHLORIDE 0.9% 250 ML IVPB ONE (14:00)
[2023-05-25] MEDS ORDERED: ONDANSETRON 4 MG/2 ML VIAL IVP ONE (14:00)
[2023-05-25] MEDS ORDERED: IPRATROPIUM 0.5 MG/2.5 ML NEBU INHALATION ONE (14:00)
[2023-05-25] MEDS ORDERED: SODIUM CHLORIDE 0.9% 1,000 ML IV ONE ×2 (14:13→15:52)
[2023-05-25] MEDS ORDERED: ceFAZolin 1,000 MG VIAL ONE (14:28)
[2023-05-25] MEDS ORDERED: NEOSTIGMINE 1 MG/ML 10 ML VIAL ONE (14:28)
[2023-05-25] MEDS ORDERED: MIDAZOLAM 2 MG/2 ML VIAL ONE (14:28)
[2023-05-25] MEDS ORDERED: ePHEDrine 50 MG/ML 1 ML VIAL ONE (14:28)
[2023-05-25] MEDS ORDERED: PHENYLEPHRINE 10 MG/ML VIAL ONE (14:28)
[2023-05-25] MEDS ORDERED: GLYCOPYRROLATE 0.2 MG/ML 2 ML VIAL ONE (14:28)
[2023-05-25] MEDS ORDERED: SODIUM CHLORIDE 0.9% 100 ML BAG ONE (14:28)
[2023-05-25] MEDS ORDERED: ROCURONIUM 10 MG/ML (5 ML VIAL) IV ONE (14:28)
[2023-05-25] MEDS ORDERED: PROPOFOL 10 MG/ML 20 ML VIAL IV ONE (14:28)
[2023-05-25] MEDS ORDERED: fentaNYL (PF) 50 MCG/ML 2 ML AMP ONE (14:28)
[2023-05-25] MEDS ORDERED: CEFAZOLIN IV ONE ×2 (15:10)
[2023-05-25] MEDS ORDERED: SODIUM CHLORIDE 0.9% IV ONE ×2 (15:10)
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
[2023-05-25] MEDS ORDERED: ENOXAPARIN 40 MG/0.4 ML SYRINGE SQ SCH (16:45)
[2023-05-25] MEDS ORDERED: METHYLENE BLUE 50 MG/10 ML AMPUL MISCELLANE ONE (16:50)
[2023-05-25] MEDS: SODIUM CHLORIDE 0.45% 1,000 ML with SODIUM BICARB (1 MEQ/ML) 150 ML IV SCH ×2 (17:17)
--- NOTE | 2023-05-25 18:04 | P.OP ---
Date of Procedure: 05/25/23 Preoperative Diagnosis: Bladder perforation Postoperative Diagnosis: Same Procedure(s) Performed: Exploratory laparotomy, repair of bladder perforation, cystoscopy, suprapubic tube placement Implants: None Anesthesia: KRISHNAA Surgeon: Salvatore Madrigal Shell Shop Supervisor #1: Nael Wright Estimated Blood Loss (ml): 50 Pathology: none sent Condition: stable Disposition: PACU Indications for Procedure: This is a 67-year-old male with history of multiple sclerosis, neurogenic bladder patient has been having urinary retention was advised to undergo CIC but has been noncompliant, presented to the hospital with intraperitoneal bladder perforation. Had a prolonged discussion with the patient given the intraperitoneal bladder perforation I recommend proceeding with bladder repair. Discussed risk benefit and rationale of surgery in details Operative Findings: Approximately 2 cm perforation along the left side of the trigone close to the ureteral orifice but did not involve the ureteral orifice heavily trabeculated bladder Description of Procedure: Patient brought to the operating room, general anesthesia was induced. He was prepped and draped in sterile fashion and placed in supine position. Next a midline incision was made using a scalpel starting infraumbilically taking it down all the way down to the pubic bone. Subcutaneous tissue was dissected down using cautery. Next the fascia was incised sharply and the peritoneum was entered. Next the bowel was mobilized using the bookwalter retractor. At this point cloudy urine was drained from the abdomen. At this time the bladder was palpated and was mobilized off of the peritoneum anteriorly. Next a flexible cystoscope was inserted per urethra, cystoscopy was performed which did not clearly identify a bladder perforation but there was significant amount of cloudy urine which significantly limited visualization. At this time the bladder was filled with 200 mL of normal saline. Next the bladder was opened along the dome. At this point the area of perforation was identified it was along the left trigone, and measured 2 cm it was in close proximity to the ureteral orifice but did not involve the ureteral orifice. The bladder was completely palpated and there was no additional areas of perforation. At this time the defect was closed in 2 layers using 3-0 Vicryl in running fashion. Caution was taken to not ligate the ureteral orifice. At the end of the repair there was clear eflux from both ureteral orifices. At this point the cystotomy was closed in 2 layers using 3-0 Vicryl for the inner layer and 2-0 Vicryl for the outer layer in running fashion. The bladder was filled with 200 mL of normal saline mixed with methylene blue no leakage was appreciated from the bladder. At this point a suprapubic tube was placed along the midline incision, an incision was made at the bladder level, and the suprapubic was advanced into the bladder and the balloon was inflated with 10 mL. Catheter irrigated without any difficulties. At this time the abdomen was irrigated using 1 L of normal saline. FAM drain was placed along RLQ. Fascia was closed in running fashion using #1 PDS. Skin was closed using talisha. Both SP tube and the FAM drain were secured to the skin using 2-0 silk. Sterile dressing was applied. Both catheter irrigated without any difficulties. All count of needles and sponges was correct x 2. The patient was awakened from anesthesia and taken to recovery in stable condition
[2023-05-25] MEDS: MORPHINE SULFATE 4 MG/ML SYRINGE IV PRN (23:42)
[2023-05-26] MEDS: SODIUM CHLORIDE 0.45% 1,000 ML with SODIUM BICARB (1 MEQ/ML) 150 ML IV SCH ×2 (03:12)
[2023-05-26 07:49] LABS: Basophils % (A) 0 %; Eosinophils % (A) 0 %; HCT 33.3 % (39.0-53.0); HGB 10.9 gm/dL (13.0-17.5); Lymphocytes # (A) 0.5 k/uL (1.0-4.8); Lymphocytes % (A) 3 %; MCHC 32.8 g/dL (31.0-37.0); MCV 91.4 fL (80.0-100.0); Mean Platelet Volume 8.5; Monocytes # (A) 0.2 k/uL (0-1.0); Monocytes % (A) 1 %; Neutrophils # (A) 15.1 k/uL (1.3-7.7); Neutrophils % (A) 95 %; Platelet Count 184 k/uL (150-450); RBC 3.64 m/uL (4.30-5.90); RDW 13.6 % (11.5-15.5); WBC 15.8 k/uL (3.8-10.6)
[2023-05-26 08:22] LABS: ALT 14 U/L (4-49); AST 26 U/L (17-59); African American GFR (CKD) 79 (>60 ml/min/1.73 sqM); Albumin 2.2 g/dL (3.5-5.0); Alkaline Phosphatase 133 U/L (38-126); Anion Gap 9 mmol/L; Blood Urea Nitrogen 39 mg/dL (9-20); Calcium 7.7 mg/dL (8.4-10.2); Carbon Dioxide 22 mmol/L (22-30); Chloride 115 mmol/L (98-107); Glucose 108 mg/dL (74-99); Non-African American GFR(CKD) 68 (>60 ml/min/1.73 sqM); Sodium 146 mmol/L (137-145); Total Bilirubin 0.6 mg/dL (0.2-1.3); Total Protein 4.8 g/dL (6.3-8.2)
[2023-05-26] MEDS ORDERED: ENOXAPARIN 30 MG/0.3 ML SYRINGE SQ SCH (09:00)
[2023-05-26] MEDS: PIPERACILLIN-TAZOBACTAM 3.375 GM in SODIUM CHLORIDE 0.9% 100 ML IVPB SCH ×2 (10:06→18:02)
--- NOTE | 2023-05-26 12:16 | P.PN ---
Subjective Progress Note Date: 05/26/23 Underwent exploratory laparotomy and repair of bladder perforation yesterday. This morning he is doing well urine output is clear, he is having minimal output from the FAM drain Objective - Vital Signs Vital signs: Vital Signs Temp 97.5 F L 05/26/23 11:01 Pulse 92 05/26/23 11:01 Resp 17 05/26/23 11:01 BP 103/69 05/26/23 11:01 Pulse Ox 96 05/26/23 11:01 FiO2 Intake & Output 05/25/23 05/26/23 05/26/23 18:59 06:59 18:59 Intake Total 1850 420 240 Output Total 350 580 Balance 1500 -160 240 Weight 58.06 kg Intake: IV 1850 300 Oral 120 240 Output: Drainage 30 Abdomen 30 Urine 300 550 Estimated Blood Loss 50 Other: Voiding Method Indwelling Catheter Indwelling Catheter Indwelling Catheter - Constitutional General appearance: Present: no acute distress - Gastrointestinal General gastrointestinal: Present: soft. Absent: distended, tenderness - Psychiatric Psychiatric: Present: A&O x's 3 - Labs CBC & Chem 7: 05/26/23 06:41 05/26/23 06:41 Labs: Abnormal Lab Results - Last 24 Hours (Table) 05/26/23 05/26/23 Range/Units 06:41 06:41 WBC 15.8 H (3.8-10.6) k/uL RBC 3.64 L (4.30-5.90) m/uL Hgb 10.9 L (13.0-17.5) gm/dL Hct 33.3 L (39.0-53.0) % Neutrophils # 15.1 H (1.3-7.7) k/uL Lymphocytes # 0.5 L (1.0-4.8) k/uL Sodium 146 H (137-145) mmol/L Chloride 115 H (98-107) mmol/L BUN 39 H (9-20) mg/dL Glucose 108 H (74-99) mg/dL Calcium 7.7 L (8.4-10.2) mg/dL Alkaline Phosphatase 133 H (38-126) U/L Total Protein 4.8 L (6.3-8.2) g/dL Albumin 2.2 L (3.5-5.0) g/dL Microbiology - Last 24 Hours (Table) 05/24/23 16:36 Blood Culture Gram Stain - Preliminary Blood 05/24/23 16:36 Blood Culture Gram Stain - Preliminary Blood Blood Culture - Preliminary 05/24/23 16:00 Urine Culture - Final Urine,Voided Assessment and Plan Assessment: 67 year-old male admitted to the hospital with intraperitoneal bladder perforation, seen on CT cystogram. Underwent repair of bladder perforation on May 25. He is doing well in the postoperative period -Keep Zarate catheter and SPT to drainage -Monitor output from FAM
[2023-05-26] MEDS ORDERED: VANCOMYCIN IV PER PHARMACY 1 EACH MISC MISCELLANE PRN (14:48)
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
[2023-05-26] MEDS ORDERED: SODIUM CHLORIDE 0.9% 1,000 ML IV SCH (15:00)
[2023-05-26] MEDS: VANCOMYCIN 1,000 MG in SODIUM CHLORIDE 0.9% 250 ML IVPB SCH (15:51)
[2023-05-26] MEDS ORDERED: PIPERACILLIN-TAZOBACTAM 3.375 GM in SODIUM CHLORIDE 0.9% 100 ML IVPB SCH (16:00)
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
[2023-05-26] MEDS: SODIUM CHLORIDE 0.45% 1,000 ML IV SCH (23:24)
[2023-05-27] MEDS: PIPERACILLIN-TAZOBACTAM 3.375 GM in SODIUM CHLORIDE 0.9% 100 ML IVPB SCH ×2 (03:00→13:54)
[2023-05-27 07:02] LABS: Basophils % (A) 0 %; Eosinophils # (A) 0.1 k/uL (0-0.7); Eosinophils % (A) 1 %; HCT 39.8 % (39.0-53.0); HGB 12.8 gm/dL (13.0-17.5); Lymphocytes # (A) 0.7 k/uL (1.0-4.8); Lymphocytes % (A) 3 %; MCH 29.2 pg (25.0-35.0); MCHC 32.2 g/dL (31.0-37.0); MCV 90.8 fL (80.0-100.0); Mean Platelet Volume 8.4; Monocytes # (A) 0.4 k/uL (0-1.0); Monocytes % (A) 2 %; Neutrophils # (A) 18.7 k/uL (1.3-7.7); Neutrophils % (A) 94 %; Platelet Count 246 k/uL (150-450); RBC 4.38 m/uL (4.30-5.90); RDW 13.7 % (11.5-15.5)
[2023-05-27 07:18] LABS: African American GFR (CKD) >90 (>60 ml/min/1.73 sqM); Anion Gap 6 mmol/L; Blood Urea Nitrogen 24 mg/dL (9-20); Calcium 7.9 mg/dL (8.4-10.2); Carbon Dioxide 24 mmol/L (22-30); Chloride 108 mmol/L (98-107); Glucose 112 mg/dL (74-99); Non-African American GFR(CKD) >90 (>60 ml/min/1.73 sqM); Sodium 138 mmol/L (137-145)
[2023-05-27] MEDS: ONDANSETRON 4 MG/2 ML VIAL IVP PRN ×2 (09:14→17:10)
[2023-05-27] MEDS: VANCOMYCIN 1,000 MG in SODIUM CHLORIDE 0.9% 250 ML IVPB SCH ×2 (09:15→21:38)
[2023-05-27] MEDS: ENOXAPARIN 40 MG/0.4 ML SYRINGE SQ SCH (09:19)
[2023-05-27] MEDS: SODIUM CHLORIDE 0.45% 1,000 ML IV SCH (09:25)
--- NOTE | 2023-05-27 09:52 | P.PN ---
Subjective Is complaining of nausea this morning. Abdomen soft nondistended. Was having low output from the FAM yesterday but this morning there is an increase from output from FAM. Output from FAM is serous Objective - Vital Signs Vital signs: Vital Signs Temp 99.2 F 05/27/23 04:29 Pulse 100 05/27/23 04:29 Resp 18 05/27/23 04:29 BP 139/86 05/27/23 04:29 Pulse Ox 93 L 05/27/23 08:37 FiO2 Intake & Output 05/26/23 05/27/23 05/27/23 18:59 06:59 18:59 Intake Total 480 540 Output Total 340 540 Balance 140 0 Intake: Oral 480 540 Output: Drainage 40 240 Abdomen 40 240 Urine 300 300 Other: Voiding Method Indwelling Catheter Indwelling Catheter - Constitutional General appearance: Present: no acute distress - Gastrointestinal General gastrointestinal: Present: soft. Absent: distended, tenderness - Psychiatric Psychiatric: Present: A&O x's 3 - Labs CBC & Chem 7: 05/27/23 05:43 05/27/23 05:43 Labs: Abnormal Lab Results - Last 24 Hours (Table) 05/27/23 05/27/23 Range/Units 05:43 05:43 WBC 20.0 H (3.8-10.6) k/uL Hgb 12.8 L (13.0-17.5) gm/dL Neutrophils # 18.7 H (1.3-7.7) k/uL Lymphocytes # 0.7 L (1.0-4.8) k/uL Chloride 108 H (98-107) mmol/L BUN 24 H (9-20) mg/dL Glucose 112 H (74-99) mg/dL Calcium 7.9 L (8.4-10.2) mg/dL Microbiology - Last 24 Hours (Table) 05/24/23 16:36 Blood Culture Gram Stain - Preliminary Blood 05/24/23 16:36 Blood Culture Gram Stain - Preliminary Blood Blood Culture - Preliminary Assessment and Plan Assessment: 67 year-old male admitted to the hospital with intraperitoneal bladder perforation, seen on CT cystogram. Underwent repair of bladder perforation on May 25. Was having low output from FAM postoperatively but this morning there is an increase in the output from FAM. Both catheters are draining urine. At this time we will closely monitor the output from the FAM. -Keep Zarate catheter and SPT to drainage -Monitor output from FAM
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
[2023-05-27] MEDS ORDERED: ZINC OXIDE PASTE (Z-GUARD) 1 APPLIC TOPICAL PRN (19:23)
[2023-05-28] MEDS: PIPERACILLIN-TAZOBACTAM 3.375 GM in SODIUM CHLORIDE 0.9% 100 ML IVPB SCH ×4 (00:09→21:13)
[2023-05-28] MEDS: ONDANSETRON 4 MG/2 ML VIAL IVP PRN ×2 (00:43→08:18)
[2023-05-28] MEDS: SODIUM CHLORIDE 0.45% 1,000 ML IV SCH ×2 (00:50→21:13)
[2023-05-28] MEDS: ENOXAPARIN 40 MG/0.4 ML SYRINGE SQ SCH (08:18)
[2023-05-28 08:42] LABS: African American GFR (CKD) >90 (>60 ml/min/1.73 sqM); Non-African American GFR(CKD) >90 (>60 ml/min/1.73 sqM)
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
[2023-05-28] MEDS: VANCOMYCIN 1,000 MG in SODIUM CHLORIDE 0.9% 250 ML IVPB SCH (10:45)
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
[2023-05-28] MEDS: METOCLOPRAMIDE 5 MG/ML 2 ML VIAL IVP SCH ×3 (11:57→23:35)
--- NOTE | 2023-05-28 12:34 | P.PN ---
Subjective Progress Note Date: 05/28/23 This morning he is having nausea with vomiting. Denies any abdominal pain. He is passing flatus and his abdomen is nondistended. Output from the FAM drain has slowed down this morning. Urine from both suprapubic and the Zarate catheter is clear Objective - Vital Signs Vital signs: Vital Signs Temp 98.4 F 05/28/23 08:00 Pulse 90 05/28/23 08:00 Resp 16 05/28/23 08:00 BP 145/90 05/28/23 08:00 Pulse Ox 92 L 05/28/23 08:00 FiO2 Intake & Output 05/27/23 05/28/23 05/28/23 18:59 06:59 18:59 Intake Total 100 Output Total 1480 1100 450 Balance -1380 -1100 -450 Intake: Oral 100 Output: Gastric Drainage 180 100 Drainage 400 100 Abdomen 400 100 Urine 900 900 450 Suprapubic 275 50 50 Uretheral (Zarate) 175 400 400 Other: Voiding Method Indwelling Catheter Indwelling Catheter Indwelling Catheter - Gastrointestinal General gastrointestinal: Present: soft. Absent: distended, tenderness - Psychiatric Psychiatric: Present: A&O x's 3 - Labs CBC & Chem 7: 05/27/23 05:43 05/28/23 06:21 Labs: Microbiology - Last 24 Hours (Table) 05/24/23 16:36 Blood Culture Gram Stain - Preliminary Blood Blood Culture - Preliminary Coagulase Negative Staph 05/24/23 16:36 Blood Culture Gram Stain - Preliminary Blood Blood Culture - Preliminary Coagulase Negative Staph Assessment and Plan Assessment: 67 year-old male admitted to the hospital with intraperitoneal bladder perforation, seen on CT cystogram. Underwent repair of bladder perforation on May 25. Had increased output from the FAM on postop day #2, but today it slowed down. Having postoperative ileus -Keep Zarate catheter and SPT to drainage -Monitor output from FAM -Will keep on clear liquid diet -Will add Reglan in addition to the Zofran for nausea
[2023-05-28] MEDS: MORPHINE SULFATE 4 MG/ML SYRINGE IV PRN ×2 (15:20→21:12)
[2023-05-29] MEDS: MORPHINE SULFATE 4 MG/ML SYRINGE IV PRN ×2 (02:29→07:55)
[2023-05-29] MEDS: METOCLOPRAMIDE 5 MG/ML 2 ML VIAL IVP SCH ×2 (06:18→11:32)
[2023-05-29] MEDS: PIPERACILLIN-TAZOBACTAM 3.375 GM in SODIUM CHLORIDE 0.9% 100 ML IVPB SCH ×2 (06:18→13:52)
[2023-05-29] MEDS ORDERED: VANCOMYCIN TROUGH DUE 1 EACH MISC MISCELLANE ONE (07:00)
[2023-05-29] MEDS: ENOXAPARIN 40 MG/0.4 ML SYRINGE SQ SCH (07:55)
--- NOTE | 2023-05-29 08:11 | P.PN ---
Subjective Progress Note Date: 05/29/23 The patient is status post 3 days from an exploration, repair of bladder rupture and drainage of peritoneal fluid. His FAM drainage has diminished. His urine output adequate. He still has somewhat of a postoperative ileus. Objective - Vital Signs Vital signs: Vital Signs Temp 98.0 F 05/29/23 07:44 Pulse 104 H 05/29/23 08:00 Resp 28 H 05/29/23 08:00 BP 169/93 05/29/23 07:44 Pulse Ox 95 05/29/23 07:44 FiO2 Intake & Output 05/28/23 05/29/23 05/29/23 18:59 06:59 18:59 Intake Total 500 237 Output Total 750 1240 105 Balance -250 -1240 132 Intake: Intake, IV Titration 500 Amount Piperacillin-Tazobactam 3 100 .375 gm In Sodium Chloride 0.9% 100 ml @ 25 mls/hr IVPB Q8H [facility] Rx#: [id number] Sodium Chloride 0.45% 1, 400 000 ml @ 50 mls/hr IV . Q20H [facility] Rx#:[id number] Oral 237 Output: Gastric Drainage 50 270 Drainage 50 270 40 Abdomen 50 270 40 Urine 650 700 65 Suprapubic 75 70 30 Uretheral (Zarate) 250 280 35 Other: Voiding Method Indwelling Catheter Indwelling Catheter Indwelling Catheter # Bowel Movements 1 - Labs CBC & Chem 7: 05/27/23 05:43 05/28/23 06:21 Labs: Microbiology - Last 24 Hours (Table) 05/27/23 18:24 Blood Culture Gram Stain - Preliminary Blood 05/24/23 16:36 Blood Culture Gram Stain - Preliminary Blood Blood Culture - Preliminary Coagulase Negative Staph 05/24/23 16:36 Blood Culture Gram Stain - Preliminary Blood Blood Culture - Preliminary Coagulase Negative Staph Assessment and Plan Assessment: Impression: Status post surgical repair of bladder rupture. Recommendations: The patient needs to ambulate to. Continue with the drainage and urinary tubes.
[2023-05-29 08:13] VITALS: TEMP 98
--- NOTE | 2023-05-29 09:36 | P.PN ---
Subjective Patient was seen in follow-up for acute kidney injury. Renal function back to baseline. Has Zarate catheter. Nonoliguric. Vital signs are stable. General: No acute distress. HEENT: Head exam is unremarkable. LUNGS: No audible rhonchi or wheezes. HEART: Rate and Rhythm are regular. ABDOMEN: Abdominal wound noted. FAM drain noted. EXTREMITITES: No edema. Objective - Vital Signs Vital signs: Vital Signs Temp 98.0 F 05/29/23 07:44 Pulse 104 H 05/29/23 08:00 Resp 28 H 05/29/23 08:00 BP 169/93 05/29/23 07:44 Pulse Ox 95 05/29/23 09:10 FiO2 Intake & Output 05/28/23 05/29/23 05/29/23 18:59 06:59 18:59 Intake Total 500 237 Output Total 750 1240 610 Balance -250 -1240 -373 Intake: Intake, IV Titration 500 Amount Piperacillin-Tazobactam 3 100 .375 gm In Sodium Chloride 0.9% 100 ml @ 25 mls/hr IVPB Q8H [facility] Rx#: [id number] Sodium Chloride 0.45% 1, 400 000 ml @ 50 mls/hr IV . Q20H [facility] Rx#:[id number] Oral 237 Output: Gastric Drainage 50 270 400 Drainage 50 270 80 Abdomen 50 270 80 Urine 650 700 130 Suprapubic 75 70 30 Uretheral (Zarate) 250 280 35 Other: Voiding Method Indwelling Catheter Indwelling Catheter Indwelling Catheter # Bowel Movements 1 - Labs CBC & Chem 7: 05/27/23 05:43 05/28/23 06:21 Labs: Microbiology - Last 24 Hours (Table) 05/27/23 18:24 Blood Culture Gram Stain - Preliminary Blood 05/24/23 16:36 Blood Culture Gram Stain - Preliminary Blood Blood Culture - Preliminary Coagulase Negative Staph 05/24/23 16:36 Blood Culture Gram Stain - Preliminary Blood Blood Culture - Preliminary Coagulase Negative Staph Assessment and Plan Plan: Assessment: 1. Acute kidney injury secondary to obstructive uropathy and hypovolemia. Re solved. 2. Obstructive uropathy with left hydronephrosis and free fluid in the abdomen with concern for possible left calyx rupture. Status post bladder perforation repair May 25, 2023. 3. History of MS. 4. Metabolic acidosis secondary to acute kidney injury and lactic acidosis. Improved. 5. Mild hypernatremia from lack of oral water intake. Improved. Plan: Maintain half-normal saline. Encouraged oral intake. Avoid nephrotoxins. Morning labs pending.
[2023-05-29 11:17] LABS: HCT 46.6 % (39.0-53.0); Hypochromasia Slight; MCH 29.8 pg (25.0-35.0); MCHC 32.2 g/dL (31.0-37.0); MCV 92.5 fL (80.0-100.0); Mean Platelet Volume 9.1; Platelet Count 339 k/uL (150-450); RBC 5.04 m/uL (4.30-5.90); RDW 13.7 % (11.5-15.5); WBC 30.3 k/uL (3.8-10.6)
[2023-05-29 11:22] LABS: African American GFR (CKD) >90 (>60 ml/min/1.73 sqM); Anion Gap 15 mmol/L; Blood Urea Nitrogen 26 mg/dL (9-20); Carbon Dioxide 16 mmol/L (22-30); Chloride 108 mmol/L (98-107); Glucose 162 mg/dL (74-99); Non-African American GFR(CKD) >90 (>60 ml/min/1.73 sqM); Potassium 3.8 mmol/L (3.5-5.1); Sodium 139 mmol/L (137-145)
[2023-05-29 11:33] VITALS: BP 131/89
[2023-05-29] MEDS ORDERED: IPRATROPIUM-ALBUTEROL 3 ML NEB INHALATION PRN (12:18)
[2023-05-29 12:20] LABS: Band Neutrophils % 1 %; Lymphocytes # (M) 0.61 k/uL (1.0-4.8); Metamyelocytes % 1 %; Monocytes # (M) 1.21 k/uL (0-1.0); Neutrophils % (M) 94 %; Nucleated Red Blood Cells 0 /100 WBC (0-0); Total Cells Counted 200
[2023-05-29] MEDS ORDERED: FUROSEMIDE 10 MG/ML 4 ML VIAL IV STA (12:20)
[2023-05-29 12:25] LABS: Toxic Vacuolation Present
[2023-05-29] MEDS ORDERED: IPRATROPIUM-ALBUTEROL 3 ML NEB INHALATION SCH (12:30)
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
[2023-05-29] MEDS ORDERED: guaiFENesin 600 MG TABLET.ER PO SCH (13:00)
--- NOTE | 2023-05-29 13:13 | XR ---
EXAMINATION TYPE: XR chest 1V portable DATE OF EXAM: 05/29/2023 Comparison: 05/24/2023 Clinical History: 67-year-old male audibly congested Findings: Heart normal size. Aorta and pulmonary vasculature within normal limits. Mild peribronchial cuffing c entrally. No nikcy consolidation or pleural effusion. Impression: Mild central peribronchial cuffing could reflect bronchitis or asthma. No focal infiltrate seen.
[2023-05-29 14:20] VITALS: PULSE 102; RESP 24
[2023-05-29] MEDS ORDERED: SODIUM BICARB 8.4% 50 ML SYR (1 MEQ/ML) ONE ×2 (15:30→16:34)
[2023-05-29 15:42] LABS: Glucose,Whole Blood 154 mg/dL (70-110)
--- NOTE | 2023-05-29 16:04 | P.EN ---
CODE BLUE Indication: Unresponsive Arrived on Scene to find: CPR in progress Initial Rhythm: Asystole Code Course: Patient received epi X 5, Bicarb X 3, Calcium carbonate, Defib X 1 for V fib -- had PEA initially, then had ROSC with sinus tach for approx 5 minutes, but again had PEA and CPR resumed. See code blue forrm for more detailed information Total Down Time: Time of : 1543 Vital signs reviewed Pupils fix and dilated, Absent pulse, Absent respirations Assessment: Aspiration event Asystole arrest Acidosis Hospital diagnosis: Acute renal failure peritonitis Metabolic acidosis Possible bacteremia Multiple sclerosis Time of : 1543 Notified: Dr. Etienne at 1552 A Total of 35 minutes of critical care time was spent on the complex care of this patient. This dictation was prepared using [employer] voice recognition software. Though every attempt is made to correct errors during dictation some may still exist.
[2023-05-29] MEDS ORDERED: CALCIUM CHLORIDE 100 MG/ML 10 ML SYRINGE ONE (16:34)
[2023-05-29] MEDS ORDERED: EPINEPHrine 10 ML SYRINGE (0.1 MG/ML) ONE (16:34)
[2023-05-29] MEDS ORDERED: SODIUM CHLORIDE 0.9% 250 ML BAG ONE (16:34)
[2023-05-29] MEDS ORDERED: NOREPINEPHRINE 1 MG/ML 4 ML VIAL IV ONE (16:34)
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
[2023-05-29] MEDS ORDERED: SODIUM BICARBONATE TAB 650 MG TAB PO SCH (21:00)
--- NOTE | 2023-05-31 14:51 | CDI ---
Documentation Clarification Form Date: 05/31/2023 02:24:47 PM From: Lili Eldrigde RN, CCDS Email: [email or web address] Admit Date: 05/24/2023 06:20:00 PM Patient Name: Rich Barillas Visit Number: [id number] Discharge Date: 05/29/2023 05:58:00 PM ATTENTION: The Clinical Documentation Specialists (CDI) and [facility] Coding Staff appreciate your assistance in clarifying documentation. Please respond to the clarification below the line at the bottom and electronically sign. The CDI & [facility] Coding staff will review the response and follow-up if needed. Please note: Queries are made part of the Legal Health Record. If you have any questions, please contact the author of this message via ITS. Dr. Rc Etienne Your patient had respiratory distress on 05/29. Based on this information and the findings below, is there an additional diagnosis that is clinically appropriate for this patient? History/Risk Factors: MS - mostly bedbound. Upon presentation, found to have severe renal failure, sepsis and perforation of bladder wall with extravasation. S/P repair of bladder perforation and SP tube placement. Clinical Indicators: 05/29 IM: "Lungs: Respiratory rate increased; short of breath. Coarse breath sounds. Acute respiratory worsening. Questionable aspiration." 05/29 Nursing Note: "Since 07:50 am, RN was frequently suctioning patient estimated around Q15-40 minutes. Family notified of breathing change status. Physician notified. Orders for Mucinex, flutter valve and up in chair." 05/29 Vital signs: RR 28. Respiratory effort: short of breath, labored, cough and head bobbing. 05/29 Pulse oximetry: 92% 2LNC 05/29 IM Lung/Breathing assessment: Patient noted to be rather short of breath this morning. Audible congestion. Treatment: Chest physiotherapy on 05/29; IV Lasix 40mg x1 on 05/29; Flutter therapy on 05/29 Breathing tx: Albuterol/Atrovent on 05/29 O2: 2LNC Is there an additional diagnosis that is clinically appropriate for this patient? [ + ] Acute Hypoxic Respiratory Failure [ ] Acute Respiratory Distress [ ] Other Diagnosis, please specify [ ] Unable to determine MTDD
== END 2023-05-29 17:58 | disposition expired | DRG 853 ==
LOC: EC 15:05 → 3SCARD 18:20
PROVIDERS: ADMIT Hospitalist; ATTEND Hospitalist
PROC: 0TQB0ZZ Repair Bladder, Open Approach (ICD-10-PCS; principal; 2023-05-25 14:25)
PROC: 0T9B00Z Drainage of Bladder with Drainage Device, Open Approach (ICD-10-PCS; principal; 2023-05-25 14:25)
PROC: 5A12012 Performance of Cardiac Output, Single, Manual (ICD-10-PCS; 2023-05-29)
DX: A41.9 Sepsis, unspecified organism (principal); J96.01 Acute respiratory failure with hypoxia; K65.8 Other peritonitis; N17.0 Acute kidney failure with tubular necrosis; E87.20 Acidosis, unspecified; S37.29XA Other injury of bladder, initial encounter; N13.6 Pyonephrosis; G82.20 Paraplegia, unspecified; N30.01 Acute cystitis with hematuria; K56.7 Ileus, unspecified; R39.0 Extravasation of urine; E87.0 Hyperosmolality and hypernatremia; Z11.52 Encounter for screening for COVID-19; T17.918A Gastric contents in respiratory tract, part unspecified causing other injury, initial encounter; I46.8 Cardiac arrest due to other underlying condition; I49.01 Ventricular fibrillation; R53.81 Other malaise; Z66 Do not resuscitate; G35 Multiple sclerosis; E86.1 Hypovolemia; N32.89 Other specified disorders of bladder; E87.5 Hyperkalemia; R62.7 Adult failure to thrive; N31.9 Neuromuscular dysfunction of bladder, unspecified; K44.9 Diaphragmatic hernia without obstruction or gangrene; R00.0 Tachycardia, unspecified; Z68.20 Body mass index [BMI] 20.0-20.9, adult
CPT/HCPCS: 36415; 51798; 71045; 71046; 72192; 74176; 80048; 80053; 80202; 81001; 82150; 82550; 82565; 83605; 83690; 85025; 85610; 85730; 86850; 86900; 86901; 87040; 87077; 87086; 87186; 87636; 92950; 93005; 94640; 94667; 94760; 96361; 96365; 96366; 96368; 96375; 99291